=== PATIENT | female | born 1960 | race African-American/Black ===

== ENCOUNTER 2017-10-07 17:55 | Emergency (ER) | payer OTHER ==
[~2017-10-07] VITALS: Ht 165.1 cm; Wt 81.6 kg
[2017-10-07] MEDS ORDERED: Norco 10mg/325mg tab ORAL ONE (19:45)
[2017-10-07 20:00] VITALS: BP 118/74
--- NOTE | 2017-10-07 20:10 | Emergency Room Report ---
History of Present Illness General Chief Complaint: Multiple Trauma/Fall Source: Patient Present Illness [facility] The patient is a 56-year-old female presenting for pain after falling today. She states that she was walking on a sidewalk, tripped, and fell. She denies hitting head or loss of consciousness. She is experiencing pain in the neck, back, and hip. She has had right hip replacement for previous injury. Pain is a 10 out of 10 dull ache to these areas and is worse with movement and touch. She denies any numbness or tingling. The patient has prescription for opiate pain medication at home which helps for the chronic pain that she has. She has not taken any medication for pain today. She denies any other symptoms including nausea, vomiting, fever, chills, dizziness, blurred vision, chest pain, shortness of breath Allergies: Coded Allergies: No Known Allergies (Unverified , 10/07/17) Patient History Past Medical History: see triage record Pertinent Family History: none Reviewed Nursing Documentation: PMH: Agreed, PSxH: Agreed Nursing Documentation-PMH Past Medical History: No Stated History Review of Systems All Other Systems: negative except mentioned in HPI Physical Exam Vital Signs Date Time Temp Pulse Resp B/P (MAP) Pulse Ox O2 Delivery O2 Flow Rate FiO2 10/07/17 17:57 97.9 78 16 114/66 98 Nasal Cannula Sp02 EP Interpretation: reviewed, normal General Appearance: no apparent distress, alert, GCS 15, non-toxic Head: normocephalic, atraumatic Eyes: bilateral eye normal inspection, bilateral eye PERRL ENT: hearing grossly normal, normal pharynx, no angioedema, normal voice Neck: full range of motion, supple/symm/no masses, tender lateral - bilat, tender midline Respiratory: chest non-tender, lungs clear, normal breath sounds, speaking full sentences Cardiovascular #1: regular rate, rhythm, no edema Musculoskeletal: pelvis stable, tender - Diffuse Lumbar spine and R lateral hip. No step-offs. No deformity Neurologic: alert, oriented x3, responsive, motor strength/tone normal, sensory intact, speech normal Psychiatric: judgement/insight normal, memory normal, mood/affect normal, no suicidal/homicidal ideation Skin: normal color, no rash, warm/dry, well hydrated Procedures Splinting Splinting : Consent: Verbal Location: R index Pre-Made Type: metal Pre-Proc Neuro Vasc Exam: normal Post-Proc Neuro Vasc Exam: normal Patient Tolerated: Well Complications: None Medical Decision Making PA Attestation Dr. Tomas is my supervising physician. Patient management was discussed with my supervising physician Diagnostic Impression: Primary Impression: Multiple injuries due to trauma Additional Impressions: Sprain of index finger Qualified Codes: S63.610A - Unspecified sprain of right index finger, initial encounter Back pain Qualified Codes: M54.5 - Low back pain Contusion Qualified Codes: S30.0XXA - Contusion of lower back and pelvis, initial encounter ER Course The patient is a 56-year-old female presenting for pain after falling today. Ddx considered include but not limited to hardware failure, sprain/strain, fracture, contusion PE: vitals WNL. NAD Right hand: There is tenderness to palpation as well as edema over the second digit with limited flexion. No deformity. No ecchymosis. Neck: There is diffuse tenderness to palpation over paraspinal muscles as well as midline. No step-offs. Full active range of motion is intact Lumbar spine: There is tenderness to palpation over midline. No deformity. No step-offs. Pelvis is stable: There is sinus to palpation over the right lateral region. No ecchymosis. CT scan of C-spine, back, and pelvis is unremarkable for acute findings. The patient is given pain medication and needs to followup with her primary doctor and pain management. ER precautions are given CT/MRI/US Diagnostic Results CT/MRI/US Diagnostic Results #1: Imaging Test Ordered: CT pelvis Impression no acute findings CT/MRI/US Diagnostic Results #2: Imaging Test Ordered: CT C spine Impression no acute findings CT/MRI/US Diagnostic Results #3: Imaging Test Ordered: CT L spine Impression No acute findings Last Vital Signs Date Time Temp Pulse Resp B/P (MAP) Pulse Ox O2 Delivery O2 Flow Rate FiO2 10/07/17 17:57 97.9 78 16 114/66 98 Nasal Cannula Status: improved Disposition: HOME, SELF-CARE Condition: Improved ALESSANDRO TOPETE Oct 07, 2017 20:10
[2017-10-07 20:27] VITALS: BP 118/74
--- NOTE | 2017-10-08 09:54 | Diagnostic Imaging Report ---
Indication: Neck pain. Technique: Continuous helical imaging of the cervical spine was obtained transaxially from the skull base to the upper thoracic spine. 2-D coronal and sagittal reformatted images were obtained. Automatic Exposure Control was utilized. Total Dose length Product (DLP): [address] Dose Index Volume (CTDIvol): 18.12 mGy Comparison: None Findings: There is no acute fracture or malalignment identified. There is no soft tissue swelling identified. 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 Some of the intervertebral discs show mild narrowing. Impression: No acute injury Mild spondylosis [facility] has communicated the preliminary results to the Emergency Department. Their findings are largely concordant with this report. The CT scanner at [facility] is accredited by the [employer] and the scans are performed using dose optimization techniques as appropriate to a performed exam including Automatic Exposure control.
--- NOTE | 2017-10-08 09:58 | Diagnostic Imaging Report ---
Indication: Back pain and trauma Technique: Continuous helical transaxial imaging of the lumbar spine was obtained from the lung bases to the pubic symphysis. No IV contrast was administered. Coronal 2-D reformats were also obtained. Study obtained in a Siemens sensation [address] Total Dose length Product (DLP): [address] Dose Index Volume (CTDIvol): 0.25, 27.71 mGy Comparison: None Findings: There is no evidence of an acute fracture or malalignment. Height and configuration of the vertebral bodies and intervertebral discs are within normal limits. Mild narrowing of the L3-4 and L4-5 discs noted. The facets show mild hypertrophy. There is no soft tissue swelling. Impression: No evidence of acute injury. [facility] has communicated the preliminary results to the Emergency Department. Their findings are largely concordant with this report. The CT scanner at [facility] is accredited by the [employer] and the scans are performed using dose optimization techniques as appropriate to a performed exam including Automatic Exposure control.
--- NOTE | 2017-10-08 10:00 | Diagnostic Imaging Report ---
Indication: Pelvic pain. Trauma Technique: Continuous helical transaxial imaging of the pelvis was obtained from the iliac crest to the pubic symphysis. Coronal 2-D reformats were also obtained. Study obtained in a Siemens sensation [address] Intravenous non-ionic contrast was administered. Total Dose length Product (DLP): [address] Dose Index Volume (CTDIvol): 0.25, 0.25, 29.59 mGy Comparison: None Findings: Right total hip arthroplasty noted. Is acetabular reconstruction with hardware noted. Resultant streak artifact limits evaluation of adjacent bony and soft tissue structures. That said, no obvious fracture or malalignment identified on this study. No abnormal interface lucencies identified on this study. Moderate stool retention noted within the visualized part of the colon. The normal appendix is demonstrated. There is no free fluid. Impression: No acute injury identified. Right total hip arthroplasty. Acetabular reconstruction noted. [facility] has communicated the preliminary results to the Emergency Department. Their findings are largely concordant with this report. The CT scanner at [facility] is accredited by the [employer] and the scans are performed using dose optimization techniques as appropriate to a performed exam including Automatic Exposure control.
== END 2017-10-07 20:27 | disposition home or self-care (01) ==
LOC: EDBD 17:55 → EMR 18:11
DX: S63.610A Unspecified sprain of right index finger, initial encounter (principal); S30.0XXA Contusion of lower back and pelvis, initial encounter; W01.0XXA Fall on same level from slipping, tripping and stumbling without subsequent striking against object, initial encounter; Y93.01 Activity, walking, marching and hiking; Y92.480 Sidewalk as the place of occurrence of the external cause; Z96.641 Presence of right artificial hip joint; M25.551 Pain in right hip; M47.812 Spondylosis without myelopathy or radiculopathy, cervical region
CPT/HCPCS: 29130; 72125; 72131; 72192; 99284